=== PATIENT | male | born 1985 | race Caucasian/White ===

== ENCOUNTER 2019-06-17 04:48 | Emergency (ER) | payer BC ==
[~2019-06-17] VITALS: Ht 190.5 cm; Wt 127.0 kg
[2019-06-17 05:04] VITALS: BP 175/99
[2019-06-17] MEDS ORDERED: HYDROCODON-ACE1 EAC7 PO (05:28)
[2019-06-17] MEDS ORDERED: FLEXERIL PO (05:28)
[2019-06-17] MEDS ORDERED: MEDROL DOSPAK21 TA1 PO (05:28)
== END 2019-06-17 05:40 | disposition home or self-care (01) ==
LOC: M.ERS 04:48
DX: M54.42 Lumbago with sciatica, left side (principal); I10 Essential (primary) hypertension